=== PATIENT | male | born 1990 | race Hispanic/Latino ===

== ENCOUNTER 2023-06-21 10:15 | Emergency (ER) | payer OTHER ==
[2023-06-21] MEDS ORDERED: Cyclobenzaprine 10 MG TAB ONE (10:55)
[2023-06-21] MEDS ORDERED: Ketorolac Tromethamine 30 MG/ML VIAL ONE (10:55)
== END 2023-06-21 11:25 | disposition home or self-care (01) ==
LOC: ERS 10:15
DX: S20.212A Contusion of left front wall of thorax, initial encounter (principal); S13.4XXA Sprain of ligaments of cervical spine, initial encounter; E11.9 Type 2 diabetes mellitus without complications; I10 Essential (primary) hypertension; V68.5XXA Driver of heavy transport vehicle injured in noncollision transport accident in traffic accident, initial encounter
CPT/HCPCS: 71046; 96372; J1885

== ENCOUNTER 2023-06-24 20:49 | Inpatient (IN) | payer OTHER ==
[2023-06-24 21:36] LABS: #Basophils 0.1 thou/uL (0.0-0.2); #Eosinphils 0.2 thou/uL (0.0-0.7); #Monocytes 0.7 thou/uL (0.11-0.59); #Neutrophils 5.5 thou/uL (1.40-6.50); %Basophils 0.8 % (0.0-1.0); %Eosinophils 2.8 % (0.0-10.0); %Lymphocytes 21.8 % (21.0-51.0); %Monocytes 8.9 % (0.0-10.0); %Neutrophils 65.5 % (42.0-75.0); Hematocrit 29.7 % (42.0-52.0); Mean Corpuscular HGB CONC 33.7 g/dL (32.0-36.0); Mean Corpuscular Hemoglobin 28.8 pg (27.0-31.0); Mean Corpuscular Volume 85.6 fl (78.0-98.0); Mean Platelet Volume 9.1 fL (7.4-10.4); Platelet Count 437 10x3/uL (130-400); RBC Distribution Width 13.4 % (11.5-14.5); Red Blood Cell (RBC) Count 3.47 mill/uL (4.70-6.10); White Blood Cell (WBC) Count 8.4 10x3/uL (4.8-10.8)
[2023-06-24 22:01] LABS: ALT (SGPT) 36 U/L (8-55); AST (SGOT) 64 U/L (5-34); Albumin 1.9 g/dL (3.5-5.0); Alkaline Phosphatase 107 U/L (40-110); Anion Gap 14 mmol/L (10-20); BUN (Urea Nitrogen) 37 mg/dL (8.9-20.6); Bilirubin, Total Less than 0.2 mg/dL (0.2-1.2); Calc. Creatinine Clearance 0 mL/min (70-130); Calcium 7.5 mg/dL (7.8-10.44); Carbon Dioxide 17 mmol/L (22-29); Chloride 110 mmol/L (98-107); Estimated GFR 26; Globulin 2.8 g/dL (2.4-3.5); Glucose 284 mg/dL (70-105); Lipase Less than 4 U/L (8-78); Potassium 3.2 mmol/L (3.5-5.1); Protein, Total 4.7 g/dL (6.0-8.3); Sodium 138 mmol/L (136-145)
[2023-06-25] MEDS ORDERED: Glucagon 1 MG/ML KIT IM PRN ×2 (00:09→00:40)
[2023-06-25] MEDS ORDERED: Insulin Regular 300 UNITS/3 ML VIAL SC PRN (00:09)
[2023-06-25] MEDS ORDERED: Dextrose 5% in Water 1,000 ML IV PRN ×2 (00:09→00:40)
[2023-06-25] MEDS ORDERED: Dextrose 50% Abboject 50 ML SYRINGE SLOW IVP PRN ×2 (00:09→00:40)
[2023-06-25 00:28] LABS: Hematocrit 27.8 % (42.0-52.0); Hemoglobin 9.4 g/dL (14.0-18.0); Mean Corpuscular HGB CONC 33.8 g/dL (32.0-36.0); Mean Corpuscular Hemoglobin 28.7 pg (27.0-31.0); Mean Corpuscular Volume 84.8 fl (78.0-98.0); Platelet Count 385 10x3/uL (130-400); RBC Distribution Width 13.2 % (11.5-14.5); Red Blood Cell (RBC) Count 3.28 mill/uL (4.70-6.10); White Blood Cell (WBC) Count 8.5 10x3/uL (4.8-10.8)
[2023-06-25] MEDS ORDERED: Potassium Chloride 20 MEQ TAB PO SCH (00:30)
[2023-06-25 00:39] VITALS: BMI 29.2
[2023-06-25] MEDS ORDERED: HumaLOG 300 UNITS/3 ML VIAL SC PRN (00:40)
[2023-06-25 00:50] LABS: ALT (SGPT) 32 U/L (8-55); AST (SGOT) 54 U/L (5-34); Albumin 1.7 g/dL (3.5-5.0); Alkaline Phosphatase 100 U/L (40-110); Anion Gap 13 mmol/L (10-20); BUN (Urea Nitrogen) 36 mg/dL (8.9-20.6); Bilirubin, Total Less than 0.2 mg/dL (0.2-1.2); Calc. Creatinine Clearance 48 mL/min (70-130); Calcium 7.9 mg/dL (7.8-10.44); Carbon Dioxide 18 mmol/L (22-29); Chloride 112 mmol/L (98-107); Estimated GFR 27; Globulin 3.3 g/dL (2.4-3.5); Glucose 235 mg/dL (70-105); Potassium 2.7 mmol/L (3.5-5.1); Sodium 140 mmol/L (136-145)
[2023-06-25] MEDS ORDERED: cefTRIAXone (ROCEPHIN) 1 GM VIAL ONE (02:05)
[2023-06-25] MEDS ORDERED: Potassium Chloride 20 MEQ TAB ONE ×2 (02:05→09:06)
[2023-06-25] MEDS: cefTRIAXone\\ROCEPHIN 1 GM in Sodium Chloride 0.9% 100 ML IVPB SCH (02:12)
[2023-06-25] MEDS ORDERED: Azithromycin 500 MG VIAL ONE (02:46)
[2023-06-25] MEDS: Azithromycin 500 MG in Sodium Chloride 0.9% 250 ML 250 ML IVPB SCH (02:55)
[2023-06-25 05:17] LABS: #Basophils 0.1 thou/uL (0.0-0.2); #Eosinphils 0.3 thou/uL (0.0-0.7); #Monocytes 0.9 thou/uL (0.11-0.59); #Neutrophils 5.2 thou/uL (1.40-6.50); %Basophils 0.9 % (0.0-1.0); %Eosinophils 3.7 % (0.0-10.0); %Monocytes 11.1 % (0.0-10.0); %Neutrophils 65.1 % (42.0-75.0); Hemoglobin 9.8 g/dL (14.0-18.0); Mean Corpuscular HGB CONC 33.8 g/dL (32.0-36.0); Mean Corpuscular Hemoglobin 28.8 pg (27.0-31.0); Mean Corpuscular Volume 85.3 fl (78.0-98.0); Mean Platelet Volume 9.2 fL (7.4-10.4); Platelet Count 412 10x3/uL (130-400); RBC Distribution Width 13.2 % (11.5-14.5)
[2023-06-25 05:40] LABS: Iron 46 ug/dL (65-175); Iron Binding Capacity, Total 130 mcg/dL (261-462)
[2023-06-25 05:41] LABS: ALT (SGPT) 31 U/L (8-55); AST (SGOT) 48 U/L (5-34); Albumin 1.8 g/dL (3.5-5.0); Alkaline Phosphatase 98 U/L (40-110); Anion Gap 13 mmol/L (10-20); BUN (Urea Nitrogen) 36 mg/dL (8.9-20.6); Bilirubin, Total Less than 0.2 mg/dL (0.2-1.2); Calc. Creatinine Clearance 49 mL/min (70-130); Calcium 8.1 mg/dL (7.8-10.44); Carbon Dioxide 18 mmol/L (22-29); Chloride 113 mmol/L (98-107); Estimated GFR 28; Globulin 3.5 g/dL (2.4-3.5); Glucose 166 mg/dL (70-105); Potassium 2.8 mmol/L (3.5-5.1); Protein, Total 5.3 g/dL (6.0-8.3); Sodium 141 mmol/L (136-145)
[2023-06-25 05:42] LABS: Iron 43 ug/dL (65-175); Iron Binding Capacity, Total 134 mcg/dL (261-462); Phosphorus 6.1 mg/dL (2.3-4.7)
[2023-06-25] MEDS ORDERED: Furosemide 40 MG/4 ML VIAL ONE (05:59)
[2023-06-25] MEDS ORDERED: Furosemide 100 MG/10 ML VIAL SLOW IVP SCH (06:00)
[2023-06-25] MEDS ORDERED: Carvedilol 3.125 MG TAB PO SCH (08:00)
[2023-06-25] MEDS ORDERED: Carvedilol 6.25 MG TAB PO SCH (08:00)
[2023-06-25] MEDS ORDERED: Furosemide 40 MG TAB PO SCH (09:00)
[2023-06-25] MEDS ORDERED: Aspirin Chewable 81 MG TAB PO SCH (09:00)
[2023-06-25] MEDS ORDERED: Non-Formulary Item 1 EACH (Nifedipine [Nifedipine Er] 60 MG Tab.Er.24) PO SCH (09:00)
[2023-06-25] MEDS ORDERED: Lisinopril 20 MG TAB PO SCH (09:00)
[2023-06-25] MEDS: hydrALAZINE 25 MG TAB PO SCH ×4 (09:00→17:54)
[2023-06-25] MEDS ORDERED: Ergocalciferol 1.25 MG(50,000 UNITS) CAP PO SCH (09:00)
[2023-06-25] MEDS ORDERED: hydrALAZINE 25 MG TAB ONE (09:06)
[2023-06-25] MEDS ORDERED: Lisinopril 10 MG TAB ONE (09:06)
[2023-06-25] MEDS ORDERED: NIFEdipine XL 30 MG TAB ONE (09:08)
[2023-06-25] MEDS: Potassium Chloride 20 MEQ TAB PO SCH ×2 (09:08→17:55)
[2023-06-25] MEDS: NIFEdipine XL 60 MG TAB PO SCH (09:10)
[2023-06-25 09:48] LABS: Bacteria/HPF None Seen HPF (None Seen); Bilirubin Negative (Negative); Blood, Urine 2+ (Negative); Clarity Clear (Clear); Glucose, Urine (Dipstick) 500 mg/dL (Negative); Ketone, Urine Negative (Negative); Leukocyte Negative Leu/uL (Negative); Nitrite Negative (Negative); Protein, Urine (Dipstick) 300 mg/dL (Neg-Trace); RBC/HPF 0-3 HPF (0-3); Squamous Epithelial 0-3 HPF (0-3); Urobilinogen Normal mg/dL (Less than 2); WBC/HPF 0-3 HPF (0-3); pH, Urine 6.5 (5.0-9.0)
[2023-06-25 10:27] LABS: Creatinine, Urine 23.4 mg/dL (63-166)
[2023-06-25] MEDS: Heparin 5,000 UNITS/ML VIAL SC SCH ×3 (10:38→21:26)
[2023-06-25] MEDS ORDERED: Epoetin (ESRD) 10,000 UNITS/ML VIAL SC SCH (12:45)
[2023-06-25] MEDS: Furosemide 40 MG/4 ML VIAL SLOW IVP SCH (15:14)
[2023-06-25] MEDS ORDERED: Non-Formulary Item 1 EACH (Hydralazine Hcl [Hydralazine Hcl] 100 MG Tablet) PO SCH (17:00)
[2023-06-25] MEDS: Albumin 25% 25 GM/100 ML BOT IVPB SCH (17:55)
[2023-06-25] MEDS ORDERED: hydrALAZINE 25 MG TAB PO SCH (21:00)
[2023-06-25] MEDS: Insulin Glargine 30 UNITS/0.3 ML VIAL SC SCH (21:27)
[2023-06-26] MEDS: Albumin 25% 25 GM/100 ML BOT IVPB SCH ×3 (00:30→12:13)
[2023-06-26] MEDS: cefTRIAXone\\ROCEPHIN 1 GM in Sodium Chloride 0.9% 100 ML IVPB SCH ×2 (03:14→23:52)
[2023-06-26] MEDS: Azithromycin 500 MG in Sodium Chloride 0.9% 250 ML 250 ML IVPB SCH (04:00)
[2023-06-26] MEDS: Furosemide 40 MG/4 ML VIAL SLOW IVP SCH ×2 (05:27→15:02)
[2023-06-26 07:35] LABS: Iron 38 ug/dL (65-175); Iron Binding Capacity, Total 91 mcg/dL (261-462)
[2023-06-26] MEDS: Potassium Chloride 20 MEQ TAB PO SCH ×2 (09:12→16:59)
[2023-06-26] MEDS: hydrALAZINE 25 MG TAB PO SCH ×2 (09:12→16:58)
[2023-06-26] MEDS: NIFEdipine XL 60 MG TAB PO SCH (09:13)
[2023-06-26] MEDS: Aspirin Chewable 81 MG TAB PO SCH (09:13)
[2023-06-26] MEDS: Heparin 5,000 UNITS/ML VIAL SC SCH ×3 (09:13→20:19)
[2023-06-26] MEDS: Insulin Glargine 30 UNITS/0.3 ML VIAL SC SCH (20:19)
[2023-06-26] MEDS ORDERED: Labetalol HCl 100 MG/20 ML VIAL SLOW IVP SCH (23:45)
[2023-06-27] MEDS: Azithromycin 500 MG in Sodium Chloride 0.9% 250 ML 250 ML IVPB SCH (02:51)
[2023-06-27 04:30] LABS: Anion Gap 11 mmol/L (10-20); BUN (Urea Nitrogen) 33 mg/dL (8.9-20.6); Calc. Creatinine Clearance 51 mL/min (70-130); Carbon Dioxide 17 mmol/L (22-29); Chloride 114 mmol/L (98-107); Estimated GFR 25; Glucose 159 mg/dL (70-105); Magnesium 1.7 mg/dL (1.6-2.6); Sodium 139 mmol/L (136-145)
[2023-06-27 04:37] LABS: Potassium 2.6 mmol/L (3.5-5.1)
[2023-06-27] MEDS ORDERED: Magnesium 2 GM/50 ML(in water) 2 GM in Premix Bag 1 BAG IVPB SCH (05:00)
[2023-06-27] MEDS: Potassium Chloride 40 MEQ in Sodium Chloride 0.9% 250 ML 250 ML IVPB SCH ×2 (05:43→09:45)
[2023-06-27] MEDS ORDERED: Potassium Chloride 40 MEQ in Premix Bag 1 BAG IVPB SCH (06:00)
[2023-06-27] MEDS: Furosemide 40 MG/4 ML VIAL SLOW IVP SCH ×2 (06:26→14:32)
[2023-06-27] MEDS: Aspirin Chewable 81 MG TAB PO SCH (09:38)
[2023-06-27] MEDS: NIFEdipine XL 60 MG TAB PO SCH (09:38)
[2023-06-27] MEDS: Potassium Chloride 20 MEQ TAB PO SCH ×2 (09:38→17:22)
[2023-06-27] MEDS: hydrALAZINE 25 MG TAB PO SCH ×2 (09:38→17:22)
[2023-06-27] MEDS: Heparin 5,000 UNITS/ML VIAL SC SCH ×3 (09:38→20:10)
[2023-06-27] MEDS ORDERED: Potassium Chloride 20 MEQ TAB PO SCH (10:08)
[2023-06-27] MEDS: Ferrous Sulfate 325 MG TAB PO SCH (17:22)
[2023-06-27] MEDS: Insulin Glargine 30 UNITS/0.3 ML VIAL SC SCH (20:10)
[2023-06-28] MEDS: cefTRIAXone\\ROCEPHIN 1 GM in Sodium Chloride 0.9% 100 ML IVPB SCH (02:01)
[2023-06-28] MEDS: Azithromycin 500 MG in Sodium Chloride 0.9% 250 ML 250 ML IVPB SCH (02:43)
[2023-06-28 04:14] LABS: #Eosinphils 0.2 thou/uL (0.0-0.7); #Monocytes 0.9 thou/uL (0.11-0.59); #Neutrophils 5.7 thou/uL (1.40-6.50); %Basophils 0.5 % (0.0-1.0); %Eosinophils 2.8 % (0.0-10.0); %Lymphocytes 17.9 % (21.0-51.0); %Monocytes 11.1 % (0.0-10.0); %Neutrophils 67.3 % (42.0-75.0); Hematocrit 26.2 % (42.0-52.0); Hemoglobin 8.7 g/dL (14.0-18.0); Mean Corpuscular HGB CONC 33.2 g/dL (32.0-36.0); Mean Corpuscular Hemoglobin 28.7 pg (27.0-31.0); Mean Corpuscular Volume 86.5 fl (78.0-98.0); Mean Platelet Volume 9.3 fL (7.4-10.4); Platelet Count 344 10x3/uL (130-400); RBC Distribution Width 13.6 % (11.5-14.5); Red Blood Cell (RBC) Count 3.03 mill/uL (4.70-6.10); White Blood Cell (WBC) Count 8.5 10x3/uL (4.8-10.8)
[2023-06-28] MEDS ORDERED: Labetalol HCl 100 MG/20 ML VIAL SLOW IVP SCH (04:30)
[2023-06-28 04:43] LABS: Anion Gap 9 mmol/L (10-20); BUN (Urea Nitrogen) 29 mg/dL (8.9-20.6); Calc. Creatinine Clearance 53 mL/min (70-130); Calcium 8.2 mg/dL (7.8-10.44); Carbon Dioxide 18 mmol/L (22-29); Chloride 117 mmol/L (98-107); Estimated GFR 26; Glucose 101 mg/dL (70-105); Potassium 3.4 mmol/L (3.5-5.1); Sodium 141 mmol/L (136-145)
[2023-06-28] MEDS: Furosemide 40 MG/4 ML VIAL SLOW IVP SCH ×2 (05:52→14:10)
[2023-06-28] MEDS: Aspirin Chewable 81 MG TAB PO SCH (08:41)
[2023-06-28] MEDS: Heparin 5,000 UNITS/ML VIAL SC SCH ×3 (08:41→21:19)
[2023-06-28] MEDS: NIFEdipine XL 60 MG TAB PO SCH (08:41)
[2023-06-28] MEDS: Potassium Chloride 20 MEQ TAB PO SCH ×2 (08:41→18:25)
[2023-06-28] MEDS: hydrALAZINE 25 MG TAB PO SCH ×2 (08:41→16:55)
[2023-06-28] MEDS: Ferrous Sulfate 325 MG TAB PO SCH ×2 (08:41→18:25)
[2023-06-28] MEDS: Insulin Glargine 30 UNITS/0.3 ML VIAL SC SCH (21:20)
[2023-06-28] MEDS ORDERED: Ondansetron PF 4 MG/2 ML Vial IVP PRN (22:30)
[2023-06-28] MEDS ORDERED: Ondansetron ODT 4 MG TAB PO PRN (22:30)
[2023-06-29 05:24] LABS: Anion Gap 9 mmol/L (10-20); BUN (Urea Nitrogen) 29 mg/dL (8.9-20.6); Calc. Creatinine Clearance 54 mL/min (70-130); Carbon Dioxide 19 mmol/L (22-29); Chloride 114 mmol/L (98-107); Estimated GFR 27; Glucose 91 mg/dL (70-105); Potassium 3.4 mmol/L (3.5-5.1); Sodium 139 mmol/L (136-145)
[2023-06-29] MEDS: Furosemide 40 MG/4 ML VIAL SLOW IVP SCH ×2 (05:46→14:31)
[2023-06-29] MEDS: Ferrous Sulfate 325 MG TAB PO SCH ×2 (08:20→17:45)
[2023-06-29] MEDS: hydrALAZINE 25 MG TAB PO SCH ×2 (08:20→17:45)
[2023-06-29] MEDS: Aspirin Chewable 81 MG TAB PO SCH (08:20)
[2023-06-29] MEDS: Potassium Chloride 20 MEQ TAB PO SCH ×2 (08:21→17:44)
[2023-06-29] MEDS: Heparin 5,000 UNITS/ML VIAL SC SCH ×3 (08:21→20:45)
[2023-06-29] MEDS: NIFEdipine XL 60 MG TAB PO SCH (08:21)
[2023-06-29] MEDS ORDERED: Metolazone 5 MG TAB PO SCH (12:00)
[2023-06-29] MEDS: Albumin 25% 25 GM/100 ML BOT IVPB SCH ×2 (12:32→17:46)
[2023-06-29 14:37] LABS: Albumin-Ur 64.6 % (.); Alpha 1 - Ur 9.9 % (.); Beta-Ur 4.1 % (.); Gamma-Ur 14.4 % (.); M-Spike,% Not Observed % (Not Observed); Protein, Urine 946.8 mg/dL (Not Estab.)
[2023-06-29 14:37] LABS: A/G Ratio 0.9 (0.7-1.7); Alpha 1 0.2 g/dL (0.0-0.4); Alpha 2 0.9 g/dL (0.4-1.0); Beta 0.7 g/dL (0.7-1.3); Gamma 0.4 g/dL (0.4-1.8); Globulin, Total 2.2 g/dL (2.2-3.9); M-Spike Not Observed g/dL (Not Observed)
[2023-06-29] MEDS: Insulin Glargine 30 UNITS/0.3 ML VIAL SC SCH (20:45)
[2023-06-30] MEDS: Albumin 25% 25 GM/100 ML BOT IVPB SCH ×2 (00:16→06:16)
[2023-06-30 05:30] LABS: Anion Gap 12 mmol/L (10-20); BUN (Urea Nitrogen) 30 mg/dL (8.9-20.6); Calc. Creatinine Clearance 49 mL/min (70-130); Calcium 8.4 mg/dL (7.8-10.44); Carbon Dioxide 18 mmol/L (22-29); Chloride 112 mmol/L (98-107); Estimated GFR 25; Glucose 127 mg/dL (70-105); Potassium 3.3 mmol/L (3.5-5.1); Sodium 139 mmol/L (136-145)
[2023-06-30] MEDS: Furosemide 40 MG/4 ML VIAL SLOW IVP SCH ×2 (06:16→14:35)
[2023-06-30] MEDS: Heparin 5,000 UNITS/ML VIAL SC SCH ×3 (09:15→20:07)
[2023-06-30] MEDS: Aspirin Chewable 81 MG TAB PO SCH (09:16)
[2023-06-30] MEDS: NIFEdipine XL 60 MG TAB PO SCH (09:16)
[2023-06-30] MEDS: Ferrous Sulfate 325 MG TAB PO SCH ×2 (09:16→16:21)
[2023-06-30] MEDS: hydrALAZINE 25 MG TAB PO SCH ×2 (09:16→16:21)
[2023-06-30] MEDS: Potassium Chloride 20 MEQ TAB PO SCH ×2 (09:16→16:21)
[2023-06-30] MEDS: Insulin Glargine 30 UNITS/0.3 ML VIAL SC SCH (20:07)
[2023-06-30] MEDS ORDERED: Famotidine 20 MG TAB PO SCH (21:00)
[2023-07-01] MEDS ORDERED: Labetalol HCl 100 MG/20 ML VIAL SLOW IVP SCH (01:00)
[2023-07-01] MEDS: Furosemide 40 MG/4 ML VIAL SLOW IVP SCH (04:54)
[2023-07-01 05:02] LABS: Anion Gap 15 mmol/L (10-20); BUN (Urea Nitrogen) 27 mg/dL (8.9-20.6); Calc. Creatinine Clearance 48 mL/min (70-130); Carbon Dioxide 18 mmol/L (22-29); Chloride 111 mmol/L (98-107); Estimated GFR 24; Glucose 165 mg/dL (70-105); Potassium 3.1 mmol/L (3.5-5.1); Sodium 141 mmol/L (136-145)
[2023-07-01 07:35] VITALS: BP 182/87; TEMP 98.9
[2023-07-01] MEDS: Heparin 5,000 UNITS/ML VIAL SC SCH (08:03)
[2023-07-01] MEDS: hydrALAZINE 25 MG TAB PO SCH (08:03)
[2023-07-01] MEDS: NIFEdipine XL 60 MG TAB PO SCH (08:03)
[2023-07-01] MEDS: Potassium Chloride 20 MEQ TAB PO SCH (08:03)
[2023-07-01] MEDS: Ferrous Sulfate 325 MG TAB PO SCH (08:04)
[2023-07-01] MEDS: Aspirin Chewable 81 MG TAB PO SCH (08:04)
[2023-07-01] MEDS ORDERED: Famotidine 20 MG TAB PO SCH (09:00)
[2023-07-02] MEDS ORDERED: Ergocalciferol 1.25 MG(50,000 UNITS) CAP PO SCH (09:00)
== END 2023-07-01 10:10 | disposition home or self-care (01) | DRG 682 ==
LOC: ERS 20:49 → ERHOLD 23:27 → 2NO 06-25 00:15
PROVIDERS: ADMIT Internal Medicine Nephrology; ATTEND Family Medicine
DX: N17.9 Acute kidney failure, unspecified (principal); I50.33 Acute on chronic diastolic (congestive) heart failure; J18.9 Pneumonia, unspecified organism; I31.39 Other pericardial effusion (noninflammatory); J90 Pleural effusion, not elsewhere classified; I13.0 Hypertensive heart and chronic kidney disease with heart failure and stage 1 through stage 4 chronic kidney disease, or unspecified chronic kidney disease; E87.20 Acidosis, unspecified; D63.1 Anemia in chronic kidney disease; E10.22 Type 1 diabetes mellitus with diabetic chronic kidney disease; E78.5 Hyperlipidemia, unspecified; E88.09 Other disorders of plasma-protein metabolism, not elsewhere classified; N18.4 Chronic kidney disease, stage 4 (severe); E87.6 Hypokalemia; Z79.82 Long term (current) use of aspirin; Z79.4 Long term (current) use of insulin; Z79.84 Long term (current) use of oral hypoglycemic drugs; Z79.899 Other long term (current) drug therapy; Z89.429 Acquired absence of other toe(s), unspecified side; D50.9 Iron deficiency anemia, unspecified
CPT/HCPCS: 36415; 36416; 71045; 71250; 74177; 80048; 80053; 81001; 82570; 82728; 83036; 83540; 83550; 83690; 83735; 83880; 84100; 84155; 84156; 84165; 84166; 84484; 85025; 85027; 85379; 93005; 93306; 93970; 94760; J0456; J0696; J1644; J1815; J1940; J2405; J3475; J3480; J3490; J7050; P9047; Q4081

== ENCOUNTER 2023-10-21 13:22 | Inpatient (IN) | payer OTHER ==
[2023-10-21 14:37] LABS: #Basophils 0.1 thou/uL (0.0-0.2); #Eosinphils 0.1 thou/uL (0.0-0.7); #Monocytes 0.6 thou/uL (0.11-0.59); #Neutrophils 6.5 thou/uL (1.40-6.50); %Basophils 0.6 % (0.0-1.0); %Eosinophils 1.1 % (0.0-10.0); %Lymphocytes 17.6 % (21.0-51.0); %Monocytes 6.8 % (0.0-10.0); %Neutrophils 73.6 % (42.0-75.0); Hematocrit 28.4 % (42.0-52.0); Hemoglobin 9.6 g/dL (14.0-18.0); Mean Corpuscular HGB CONC 33.8 g/dL (32.0-36.0); Mean Corpuscular Hemoglobin 29.7 pg (27.0-31.0); Mean Corpuscular Volume 87.9 fl (78.0-98.0); Mean Platelet Volume 9.2 fL (7.4-10.4); Platelet Count 236 10x3/uL (130-400); RBC Distribution Width 13.9 % (11.5-14.5); Red Blood Cell (RBC) Count 3.23 mill/uL (4.70-6.10); White Blood Cell (WBC) Count 8.9 10x3/uL (4.8-10.8)
[2023-10-21 14:50] LABS: ALT (SGPT) 9 U/L (8-55); AST (SGOT) 14 U/L (5-34); Albumin 2.1 g/dL (3.5-5.0); Alkaline Phosphatase 110 U/L (40-110); Anion Gap 11 mmol/L (10-20); BUN (Urea Nitrogen) 27 mg/dL (8.9-20.6); Bilirubin, Total 0.4 mg/dL (0.2-1.2); Calc. Creatinine Clearance 0 mL/min (70-130); Carbon Dioxide 23 mmol/L (22-29); Chloride 102 mmol/L (98-107); Estimated GFR 20; Globulin 3.6 g/dL (2.4-3.5); Glucose 260 mg/dL (70-105); Potassium 3.1 mmol/L (3.5-5.1); Protein, Total 5.7 g/dL (6.0-8.3); Sodium 133 mmol/L (136-145)
[2023-10-21] MEDS ORDERED: Tuberculin PPD 0.1 ML VIAL I-DERMAL SCH ×2 (17:15→18:15)
[2023-10-21] MEDS ORDERED: Labetalol HCl 100 MG/20 ML VIAL ONE (17:16)
[2023-10-21] MEDS ORDERED: Ondansetron ODT 4 MG TAB PO PRN (17:45)
[2023-10-21] MEDS ORDERED: Senokot S 8.6-50 MG TAB PO PRN (17:45)
[2023-10-21] MEDS ORDERED: Glucagon 1 MG/ML KIT IM PRN (17:45)
[2023-10-21] MEDS ORDERED: Dextrose 5% in Water 1,000 ML IV PRN (17:45)
[2023-10-21] MEDS ORDERED: Dextrose 50% Abboject 50 ML SYRINGE SLOW IVP PRN (17:45)
[2023-10-21 18:03] LABS: HBSAg Index 0.18 S/CO (0-0.99); Hep B Core Total Ab Non-Reactive (NonReactive); Hep B Core Total Index 0.09 S/CO (0-0.79); Hep B Surf Ag Non-Reactive S/CO (NonReactive); Hep C IgG Ab Non-Reactive S/CO (NonReactive); Hep C Index 0.14 S/CO (0-0.79)
[2023-10-21 18:30] LABS: Hep B Surf AB Reactive (NonReactive)
[2023-10-21] MEDS: HumuLIN 70/30 100 Unit/ ml 10 ml Vial SC SCH (22:56)
[2023-10-22] MEDS: Labetalol HCl 100 MG/20 ML VIAL SLOW IVP PRN ×3 (00:19→11:55)
[2023-10-22 04:50] LABS: #Eosinphils 0.2 thou/uL (0.0-0.7); #Monocytes 0.9 thou/uL (0.11-0.59); #Neutrophils 4.9 thou/uL (1.40-6.50); %Basophils 0.5 % (0.0-1.0); %Eosinophils 1.7 % (0.0-10.0); %Lymphocytes 31.6 % (21.0-51.0); %Monocytes 9.9 % (0.0-10.0); %Neutrophils 56.1 % (42.0-75.0); Hematocrit 24.4 % (42.0-52.0); Hemoglobin 8.3 g/dL (14.0-18.0); Mean Corpuscular Hemoglobin 29.1 pg (27.0-31.0); Mean Corpuscular Volume 85.6 fl (78.0-98.0); Mean Platelet Volume 9.3 fL (7.4-10.4); Platelet Count 229 10x3/uL (130-400); RBC Distribution Width 13.9 % (11.5-14.5); Red Blood Cell (RBC) Count 2.85 mill/uL (4.70-6.10); White Blood Cell (WBC) Count 8.7 10x3/uL (4.8-10.8)
[2023-10-22 05:15] LABS: Anion Gap 8 mmol/L (10-20); BUN (Urea Nitrogen) 30 mg/dL (8.9-20.6); Calc. Creatinine Clearance 32 mL/min (70-130); Calcium 7.8 mg/dL (7.8-10.44); Carbon Dioxide 25 mmol/L (22-29); Chloride 106 mmol/L (98-107); Estimated GFR 19; Glucose 152 mg/dL (70-105); Potassium 2.7 mmol/L (3.5-5.1); Sodium 136 mmol/L (136-145)
[2023-10-22] MEDS: Potassium Chloride 20 MEQ TAB PO SCH ×2 (08:26→14:47)
[2023-10-22] MEDS ORDERED: Sterile Water 10 ML VIAL IVP SCH (09:15)
[2023-10-22] MEDS ORDERED: Activase 2 MG VIAL CATH SCH (09:15)
[2023-10-22] MEDS ORDERED: Potassium Chloride 20 MEQ TAB PO SCH (10:15)
[2023-10-22] MEDS: hydrALAZINE 25 MG TAB PO SCH ×3 (10:27→20:42)
[2023-10-22] MEDS: NIFEdipine XL 60 MG ER.TAB PO SCH (10:28)
[2023-10-22] MEDS: HumaLOG 300 UNITS/3 ML VIAL SC PRN ×2 (11:55→16:45)
[2023-10-22] MEDS: HumuLIN 70/30 100 Unit/ ml 10 ml Vial SC SCH (20:49)
[2023-10-22] MEDS: Acetaminophen 325 MG TAB PO PRN (22:27)
[2023-10-23 04:21] LABS: #Eosinphils 0.2 thou/uL (0.0-0.7); #Monocytes 0.7 thou/uL (0.11-0.59); #Neutrophils 4.6 thou/uL (1.40-6.50); %Basophils 0.5 % (0.0-1.0); %Eosinophils 2.3 % (0.0-10.0); %Lymphocytes 29.4 % (21.0-51.0); %Monocytes 8.5 % (0.0-10.0); Hematocrit 25.6 % (42.0-52.0); Hemoglobin 8.5 g/dL (14.0-18.0); Mean Corpuscular HGB CONC 33.2 g/dL (32.0-36.0); Mean Corpuscular Hemoglobin 29.2 pg (27.0-31.0); Mean Platelet Volume 9.5 fL (7.4-10.4); Platelet Count 239 10x3/uL (130-400); RBC Distribution Width 14.2 % (11.5-14.5); Red Blood Cell (RBC) Count 2.91 mill/uL (4.70-6.10); White Blood Cell (WBC) Count 7.8 10x3/uL (4.8-10.8)
[2023-10-23] MEDS: Labetalol HCl 100 MG/20 ML VIAL SLOW IVP PRN ×2 (04:39→15:03)
[2023-10-23 05:01] LABS: Anion Gap 11 mmol/L (10-20); BUN (Urea Nitrogen) 36 mg/dL (8.9-20.6); Calc. Creatinine Clearance 31 mL/min (70-130); Calcium 7.8 mg/dL (7.8-10.44); Carbon Dioxide 24 mmol/L (22-29); Chloride 105 mmol/L (98-107); Estimated GFR 18; Glucose 270 mg/dL (70-105); Potassium 3.7 mmol/L (3.5-5.1); Sodium 136 mmol/L (136-145)
[2023-10-23] MEDS ORDERED: Sevoflurane 250 ML INH ANEST BOTTLE ONE (05:42)
[2023-10-23] MEDS ORDERED: EPINEPHrine 1 MG/ML VIAL ONE (06:52)
[2023-10-23] MEDS ORDERED: Bupivacaine 0.25% HCL 30 ML VIAL ONE (06:52)
[2023-10-23] MEDS ORDERED: Heparin 10,000 UNITS/ 10 ML VIAL ONE (06:52)
[2023-10-23] MEDS ORDERED: Lidocaine 2% PF 5 ML VIAL ONE (06:53)
[2023-10-23] MEDS ORDERED: CEFAZOLIN 2 GM VIAL ONE (08:09)
[2023-10-23] MEDS ORDERED: Sodium Chloride 0.9% 100 ML ONE (08:10)
[2023-10-23] MEDS ORDERED: PROPOFOL 40 ML ONE (10:21)
[2023-10-23] MEDS ORDERED: fentaNYL PF 100 MCG/2 ML SYRINGE ONE (10:21)
[2023-10-23] MEDS ORDERED: Midazolam HCl 2 mg/2 ml Vial ONE (10:21)
[2023-10-23] MEDS ORDERED: Ketamine In 0.9 % NaCl 50 MG/5 ML SYRINGE ONE (10:21)
[2023-10-23] MEDS ORDERED: HYDROcodone/Acetaminophen 5/325 mg Tablet PO PRN (11:22)
[2023-10-23] MEDS ORDERED: CEFAZOLIN 2 GM in Sodium Chloride 0.9% 100 ML IVPB SCH (13:00)
[2023-10-23] MEDS: NIFEdipine XL 60 MG ER.TAB PO SCH (17:35)
[2023-10-23] MEDS: hydrALAZINE 25 MG TAB PO SCH ×3 (17:35→21:00)
[2023-10-23] MEDS: Acetaminophen 325 MG TAB PO PRN (20:39)
[2023-10-23] MEDS: HumuLIN 70/30 100 Unit/ ml 10 ml Vial SC SCH (20:41)
[2023-10-23] MEDS: HumaLOG 300 UNITS/3 ML VIAL SC PRN (20:41)
[2023-10-24 04:56] LABS: #Eosinphils 0.3 thou/uL (0.0-0.7); #Monocytes 0.8 thou/uL (0.11-0.59); #Neutrophils 4.2 thou/uL (1.40-6.50); %Basophils 0.5 % (0.0-1.0); %Eosinophils 3.9 % (0.0-10.0); %Lymphocytes 29.1 % (21.0-51.0); %Monocytes 10.7 % (0.0-10.0); %Neutrophils 55.5 % (42.0-75.0); Hematocrit 23.9 % (42.0-52.0); Hemoglobin 8.1 g/dL (14.0-18.0); Mean Corpuscular HGB CONC 33.9 g/dL (32.0-36.0); Mean Corpuscular Hemoglobin 29.9 pg (27.0-31.0); Mean Corpuscular Volume 88.2 fl (78.0-98.0); Mean Platelet Volume 8.8 fL (7.4-10.4); Platelet Count 212 10x3/uL (130-400); RBC Distribution Width 13.9 % (11.5-14.5); Red Blood Cell (RBC) Count 2.71 mill/uL (4.70-6.10); White Blood Cell (WBC) Count 7.6 10x3/uL (4.8-10.8)
[2023-10-24 05:39] LABS: Anion Gap 9 mmol/L (10-20); BUN (Urea Nitrogen) 18 mg/dL (8.9-20.6); Calc. Creatinine Clearance 49 mL/min (70-130); Calcium 7.6 mg/dL (7.8-10.44); Carbon Dioxide 26 mmol/L (22-29); Chloride 103 mmol/L (98-107); Estimated GFR 32; Glucose 219 mg/dL (70-105); Potassium 3.6 mmol/L (3.5-5.1); Sodium 134 mmol/L (136-145)
[2023-10-24] MEDS: NIFEdipine XL 60 MG ER.TAB PO SCH (08:56)
[2023-10-24] MEDS: hydrALAZINE 25 MG TAB PO SCH ×3 (08:56→21:16)
[2023-10-24] MEDS ORDERED: READ PPD TEST SITE PO SCH (09:00)
[2023-10-24] MEDS: HumaLOG 300 UNITS/3 ML VIAL SC PRN ×3 (10:33→21:18)
[2023-10-24] MEDS ORDERED: EPOETIN ALFA-EPBX (NON-ESRD) 40,000 UNITS/ML VIAL SC SCH (12:00)
[2023-10-24] MEDS: HumuLIN 70/30 100 Unit/ ml 10 ml Vial SC SCH (21:19)
[2023-10-25] MEDS: Labetalol HCl 100 MG/20 ML VIAL SLOW IVP PRN ×2 (01:46→05:54)
[2023-10-25] MEDS: hydrALAZINE 25 MG TAB PO SCH ×3 (05:19→21:18)
[2023-10-25 05:27] LABS: #Basophils 0.1 thou/uL (0.0-0.2); #Eosinphils 0.4 thou/uL (0.0-0.7); #Monocytes 1.2 thou/uL (0.11-0.59); #Neutrophils 5.3 thou/uL (1.40-6.50); %Basophils 0.8 % (0.0-1.0); %Eosinophils 4.5 % (0.0-10.0); %Lymphocytes 23.8 % (21.0-51.0); %Monocytes 12.6 % (0.0-10.0); Hematocrit 26.2 % (42.0-52.0); Hemoglobin 8.6 g/dL (14.0-18.0); Mean Corpuscular HGB CONC 32.8 g/dL (32.0-36.0); Mean Corpuscular Hemoglobin 29.2 pg (27.0-31.0); Mean Corpuscular Volume 88.8 fl (78.0-98.0); Mean Platelet Volume 9.2 fL (7.4-10.4); Platelet Count 248 10x3/uL (130-400); Red Blood Cell (RBC) Count 2.95 mill/uL (4.70-6.10); White Blood Cell (WBC) Count 9.2 10x3/uL (4.8-10.8)
[2023-10-25 05:57] LABS: Anion Gap 11 mmol/L (10-20); BUN (Urea Nitrogen) 27 mg/dL (8.9-20.6); Calc. Creatinine Clearance 41 mL/min (70-130); Carbon Dioxide 25 mmol/L (22-29); Chloride 103 mmol/L (98-107); Estimated GFR 24; Glucose 94 mg/dL (70-105); Potassium 3.9 mmol/L (3.5-5.1); Sodium 135 mmol/L (136-145)
[2023-10-25] MEDS: NIFEdipine XL 60 MG ER.TAB PO SCH (07:59)
[2023-10-25] MEDS: HumuLIN 70/30 100 Unit/ ml 10 ml Vial SC SCH (21:19)
[2023-10-26] MEDS: Labetalol HCl 100 MG/20 ML VIAL SLOW IVP PRN (02:40)
[2023-10-26 04:55] LABS: #Basophils 0.1 thou/uL (0.0-0.2); #Eosinphils 0.3 thou/uL (0.0-0.7); #Monocytes 0.8 thou/uL (0.11-0.59); #Neutrophils 3.6 thou/uL (1.40-6.50); %Basophils 0.8 % (0.0-1.0); %Eosinophils 5.1 % (0.0-10.0); %Lymphocytes 24.6 % (21.0-51.0); %Monocytes 13.1 % (0.0-10.0); %Neutrophils 56.2 % (42.0-75.0); Hemoglobin 8.6 g/dL (14.0-18.0); Mean Corpuscular HGB CONC 33.1 g/dL (32.0-36.0); Mean Corpuscular Hemoglobin 29.7 pg (27.0-31.0); Mean Corpuscular Volume 89.7 fl (78.0-98.0); Mean Platelet Volume 9.4 fL (7.4-10.4); Platelet Count 235 10x3/uL (130-400); RBC Distribution Width 13.8 % (11.5-14.5); White Blood Cell (WBC) Count 6.4 10x3/uL (4.8-10.8)
[2023-10-26 05:23] LABS: Anion Gap 11 mmol/L (10-20); BUN (Urea Nitrogen) 21 mg/dL (8.9-20.6); Calc. Creatinine Clearance 45 mL/min (70-130); Calcium 7.9 mg/dL (7.8-10.44); Carbon Dioxide 29 mmol/L (22-29); Chloride 102 mmol/L (98-107); Estimated GFR 28; Glucose 196 mg/dL (70-105); Sodium 138 mmol/L (136-145)
[2023-10-26] MEDS: HumaLOG 300 UNITS/3 ML VIAL SC PRN ×3 (05:46→21:00)
[2023-10-26] MEDS: hydrALAZINE 25 MG TAB PO SCH ×3 (09:01→21:00)
[2023-10-26] MEDS ORDERED: Heparin 10,000 UNITS/ 10 ML VIAL ONE (09:14)
[2023-10-26] MEDS: NIFEdipine XL 60 MG ER.TAB PO SCH (13:34)
[2023-10-26] MEDS: HumuLIN 70/30 100 Unit/ ml 10 ml Vial SC SCH (21:00)
[2023-10-27] MEDS: HumaLOG 300 UNITS/3 ML VIAL SC PRN ×4 (06:22→21:00)
[2023-10-27] MEDS: hydrALAZINE 25 MG TAB PO SCH ×3 (09:23→21:00)
[2023-10-27] MEDS: NIFEdipine XL 60 MG ER.TAB PO SCH (09:23)
[2023-10-27 10:27] VITALS: BMI 26.7
[2023-10-27] MEDS ORDERED: NIFEdipine XL 30 MG ER.TAB PO SCH (14:45)
[2023-10-27] MEDS: Insulin Glargine 30 UNITS/0.3 ML VIAL SC SCH (21:00)
[2023-10-28 04:46] LABS: Hemoglobin A1c 6.7 % (4.0-6.0)
[2023-10-28 05:12] LABS: Anion Gap 12 mmol/L (10-20); BUN (Urea Nitrogen) 35 mg/dL (8.9-20.6); Calc. Creatinine Clearance 36 mL/min (70-130); Calcium 8.1 mg/dL (7.8-10.44); Carbon Dioxide 27 mmol/L (22-29); Chloride 100 mmol/L (98-107); Estimated GFR 22; Glucose 137 mg/dL (70-105); Potassium 3.7 mmol/L (3.5-5.1); Sodium 135 mmol/L (136-145)
[2023-10-28] MEDS ORDERED: Heparin 10,000 UNITS/ 10 ML VIAL ONE (09:30)
[2023-10-28] MEDS: hydrALAZINE 25 MG TAB PO SCH ×3 (10:10→21:33)
[2023-10-28] MEDS: NIFEdipine XL 90 MG ER.TAB PO SCH ×2 (10:10→12:51)
[2023-10-28] MEDS ORDERED: Epoetin (ESRD) 10,000 UNITS/ML VIAL IVP SCH (12:00)
[2023-10-28] MEDS: EPOETIN ALFA-EPBX (ESRD) 10,000 UNITS/ML VIAL IVP SCH (12:53)
[2023-10-28] MEDS: HumaLOG 300 UNITS/3 ML VIAL SC PRN ×2 (17:29→21:35)
[2023-10-28] MEDS: Insulin Glargine 30 UNITS/0.3 ML VIAL SC SCH (21:34)
[2023-10-28] MEDS: Acetaminophen 325 MG TAB PO PRN (22:45)
[2023-10-29] MEDS: HumaLOG 300 UNITS/3 ML VIAL SC PRN ×3 (06:23→21:22)
[2023-10-29] MEDS: NIFEdipine XL 90 MG ER.TAB PO SCH (08:31)
[2023-10-29] MEDS: hydrALAZINE 25 MG TAB PO SCH ×3 (08:31→21:20)
[2023-10-29] MEDS: Insulin Glargine 30 UNITS/0.3 ML VIAL SC SCH (21:23)
[2023-10-30] MEDS ORDERED: Heparin 10,000 UNITS/ 10 ML VIAL ONE (10:31)
[2023-10-30] MEDS: hydrALAZINE 25 MG TAB PO SCH ×3 (12:33→21:42)
[2023-10-30] MEDS: NIFEdipine XL 90 MG ER.TAB PO SCH (12:34)
[2023-10-30] MEDS: EPOETIN ALFA-EPBX (ESRD) 10,000 UNITS/ML VIAL IVP SCH (12:39)
[2023-10-30] MEDS: Insulin Glargine 30 UNITS/0.3 ML VIAL SC SCH (21:42)
[2023-10-31] MEDS: Labetalol HCl 100 MG/20 ML VIAL SLOW IVP PRN ×2 (04:15→07:41)
[2023-10-31] MEDS: HumaLOG 300 UNITS/3 ML VIAL SC PRN ×2 (06:13→21:52)
[2023-10-31] MEDS: NIFEdipine XL 90 MG ER.TAB PO SCH (08:38)
[2023-10-31] MEDS: hydrALAZINE 25 MG TAB PO SCH ×3 (08:39→21:50)
[2023-10-31] MEDS ORDERED: Minoxidil 2.5 MG TAB PO SCH (12:15)
[2023-10-31] MEDS ORDERED: Furosemide 20 MG TAB PO SCH (14:00)
[2023-10-31] MEDS: Furosemide 40 MG TAB PO SCH (15:40)
[2023-10-31] MEDS: Insulin Glargine 30 UNITS/0.3 ML VIAL SC SCH (20:03)
[2023-10-31] MEDS: Lisinopril 10 MG TAB PO SCH (20:04)
[2023-11-01] MEDS: Lisinopril 10 MG TAB PO SCH ×2 (08:35→20:57)
[2023-11-01] MEDS: Furosemide 40 MG TAB PO SCH ×2 (08:35→14:28)
[2023-11-01] MEDS: NIFEdipine XL 90 MG ER.TAB PO SCH (08:35)
[2023-11-01] MEDS: Minoxidil 2.5 MG TAB PO SCH (08:35)
[2023-11-01] MEDS: hydrALAZINE 25 MG TAB PO SCH ×3 (08:36→20:57)
[2023-11-01] MEDS ORDERED: Iopamidol-370 76% 500 ML MDV (1 ML CHARGE) ONE (09:39)
[2023-11-01] MEDS: HumaLOG 300 UNITS/3 ML VIAL SC PRN ×2 (12:33→17:07)
[2023-11-01] MEDS: Insulin Glargine 30 UNITS/0.3 ML VIAL SC SCH (20:58)
[2023-11-02] MEDS: Ondansetron PF 4 MG/2 ML Vial IVP PRN (00:25)
[2023-11-02] MEDS: HumaLOG 300 UNITS/3 ML VIAL SC PRN ×3 (05:52→21:38)
[2023-11-02 07:27] LABS: Anion Gap 12 mmol/L (10-20); BUN (Urea Nitrogen) 45 mg/dL (8.9-20.6); Calc. Creatinine Clearance 28 mL/min (70-130); Carbon Dioxide 23 mmol/L (22-29); Chloride 100 mmol/L (98-107); Estimated GFR 16; Glucose 198 mg/dL (70-105); Potassium 4.5 mmol/L (3.5-5.1); Sodium 130 mmol/L (136-145)
[2023-11-02] MEDS ORDERED: Heparin 10,000 UNITS/ 10 ML VIAL ONE (09:00)
[2023-11-02] MEDS: hydrALAZINE 25 MG TAB PO SCH ×3 (14:03→21:27)
[2023-11-02] MEDS: Lisinopril 10 MG TAB PO SCH ×2 (14:03→21:28)
[2023-11-02] MEDS: NIFEdipine XL 90 MG ER.TAB PO SCH (14:04)
[2023-11-02] MEDS: Furosemide 40 MG TAB PO SCH ×2 (14:04→15:01)
[2023-11-02] MEDS: Minoxidil 2.5 MG TAB PO SCH (14:05)
[2023-11-02] MEDS: EPOETIN ALFA-EPBX (ESRD) 10,000 UNITS/ML VIAL IVP SCH (14:06)
[2023-11-02] MEDS: Insulin Glargine 30 UNITS/0.3 ML VIAL SC SCH (21:28)
[2023-11-03] MEDS ORDERED: CEFAZOLIN 2 GM in Sodium Chloride 0.9% 100 ML IVPB SCH (06:00)
[2023-11-03] MEDS ORDERED: Sodium Chloride 0.9% 100 ML ONE (07:34)
[2023-11-03] MEDS ORDERED: CEFAZOLIN 2 GM VIAL ONE (07:34)
[2023-11-03] MEDS ORDERED: EPINEPHrine 1 MG/ML VIAL ONE (08:14)
[2023-11-03] MEDS ORDERED: Heparin 5,000 UNITS/ML VIAL ONE (08:14)
[2023-11-03] MEDS ORDERED: Lidocaine 2% PF 5 ML VIAL ONE (08:15)
[2023-11-03] MEDS ORDERED: Bupivacaine PF 0.5% 30 ML VIAL ONE (08:15)
[2023-11-03] MEDS ORDERED: fentaNYL PF 100 MCG/2 ML SYRINGE ONE (08:25)
[2023-11-03] MEDS ORDERED: PROPOFOL 20 ML ONE (08:25)
[2023-11-03] MEDS ORDERED: Lidocaine 1% PF 5 ML VIAL ONE ×2 (08:26→08:38)
[2023-11-03] MEDS ORDERED: Dexamethasone 4 mg/ml Vial ONE (08:26)
[2023-11-03] MEDS ORDERED: Ondansetron PF 4 MG/2 ML Vial ONE ×2 (08:26→08:38)
[2023-11-03] MEDS ORDERED: Calcium Chloride 1 GM/10 ML Abboject SYRINGE ONE ×2 (08:38→09:25)
[2023-11-03] MEDS ORDERED: ePHEDrine Sulfate 50 MG/10 ML VIAL ONE ×2 (08:38→08:54)
[2023-11-03] MEDS ORDERED: PROPOFOL 200 MG/20 ML VIAL ONE (08:38)
[2023-11-03] MEDS ORDERED: PHENYLEPHRINE-NS 100 MCG/ML 10 ML SYRINGE ONE ×2 (08:38→08:50)
[2023-11-03] MEDS ORDERED: Acetaminophen 500 MG TAB PO PRN (08:43)
[2023-11-03] MEDS ORDERED: traMADol HCl 50 MG TAB PO PRN ×2 (08:43→08:51)
[2023-11-03] MEDS ORDERED: Acetaminophen 500 MG TAB PO SCH (08:45)
[2023-11-03] MEDS ORDERED: Heparin 10,000 UNITS/ 10 ML VIAL ONE ×2 (09:06→10:05)
[2023-11-03] MEDS ORDERED: Vasopressin 20 UNITS/ML VIAL ONE (09:25)
[2023-11-03] MEDS ORDERED: Protamine Sulfate 50 MG/5 ML VIAL ONE (10:05)
[2023-11-03] MEDS: Ondansetron PF 4 MG/2 ML Vial IVP PRN (11:36)
[2023-11-03] MEDS: hydrALAZINE 25 MG TAB PO SCH ×2 (13:14→16:06)
[2023-11-03] MEDS: NIFEdipine XL 90 MG ER.TAB PO SCH (13:15)
[2023-11-03] MEDS: Furosemide 40 MG TAB PO SCH ×2 (13:16→13:17)
[2023-11-03] MEDS: Lisinopril 10 MG TAB PO SCH (13:17)
[2023-11-03] MEDS: Minoxidil 2.5 MG TAB PO SCH (13:18)
[2023-11-03 16:07] VITALS: BP 145/77
[2023-11-03 16:39] VITALS: TEMP 98.6
== END 2023-11-03 18:03 | disposition home or self-care (01) | DRG 673 ==
LOC: ERS 13:22 → 2NO 16:58 → MSONC 10-28 11:55
PROVIDERS: ADMIT Internal Medicine; ATTEND Internal Medicine
PROC: 0JH63XZ Insertion of Tunneled Vascular Access Device into Chest Subcutaneous Tissue and Fascia, Percutaneous Approach (ICD-10-PCS; principal; 2023-10-23)
PROC: 02HV33Z Insertion of Infusion Device into Superior Vena Cava, Percutaneous Approach (ICD-10-PCS; 2023-10-23)
PROC: 3E033XZ Introduction of Vasopressor into Peripheral Vein, Percutaneous Approach (ICD-10-PCS; 2023-10-23)
PROC: 031B0ZF Bypass Right Radial Artery to Lower Arm Vein, Open Approach (ICD-10-PCS; 2023-11-03)
PROC: 0JH63XZ Insertion of Tunneled Vascular Access Device into Chest Subcutaneous Tissue and Fascia, Percutaneous Approach (ICD-10-PCS; 2023-11-03)
PROC: 02HV33Z Insertion of Infusion Device into Superior Vena Cava, Percutaneous Approach (ICD-10-PCS; 2023-11-03)
DX: N17.9 Acute kidney failure, unspecified (principal); G93.41 Metabolic encephalopathy; I13.2 Hypertensive heart and chronic kidney disease with heart failure and with stage 5 chronic kidney disease, or end stage renal disease; I50.32 Chronic diastolic (congestive) heart failure; N18.6 End stage renal disease; E87.70 Fluid overload, unspecified; I16.0 Hypertensive urgency; E11.22 Type 2 diabetes mellitus with diabetic chronic kidney disease; D50.9 Iron deficiency anemia, unspecified; E87.6 Hypokalemia; I70.1 Atherosclerosis of renal artery; D63.1 Anemia in chronic kidney disease; E88.09 Other disorders of plasma-protein metabolism, not elsewhere classified; Z88.8 Allergy status to other drugs, medicaments and biological substances; Z99.2 Dependence on renal dialysis; Z79.82 Long term (current) use of aspirin; Z79.899 Other long term (current) drug therapy; Z79.84 Long term (current) use of oral hypoglycemic drugs; Z79.4 Long term (current) use of insulin; Z98.890 Other specified postprocedural states
CPT/HCPCS: 36415; 36416; 71045; 74174; 76770; 80048; 80053; 83036; 85025; 86580; 86704; 90935; 93005; 93970; 93975; 96374; C1752; G0257; J0171; J1100; J1644; J1815; J2001; J2250; J2405; J2704; J2720; J3490; Q4081; Q5105; Q5106; Q9967; S0020

== ENCOUNTER 2024-08-22 11:56 | Outpatient (CLI) | payer OTHER | END 2024-08-22 11:57 | disposition home or self-care (01) | LOC: RAD 11:56 | PROVIDERS: ATTEND Internal Medicine Nephrology | DX: Z11.1 Encounter for screening for respiratory tuberculosis (principal) | CPT/HCPCS: 71046 ==